=== PATIENT | female | born 1975 | race African-American/Black ===

== ENCOUNTER → 2016-05-19 | Day surgery (SDC) | payer OTHER ==
[~2016-05-19] VITALS: Ht 177.8 cm; Wt 108.6 kg
[~2016-05-19] MED LIST: *ONDANSETRON 4 MG VIAL PERIprocedural Use ONLY ONE; *morphine SULFATE 8 MG/ML PERIprocedure ONLY ONE; ACETAMINOPHEN 1000 MG/100 ML VIAL IV ONE; ALBUAER3 INH; BUPIVACAINE/EPINEPHRINE 0.25% 50 ML VIAL INFIL ONE; BUPIVACAINE/EPINEPHRINE 0.25% 50 ML VIAL ONE; DO NOT ADM ANY ANTICOAGULANT DRUGS XX PRN; FAMOTIDINE 20 MG/2 ML VIAL ONE; FERR1TAB36 PO; INSULIN HUMAN REGULAR 1,000 UNITS/10 ML VIAL SQ PRN; LACTATED RINGER'S 1000 ML IV SCH; MEGE40TA PO; METOPROLOL TARTRATE 25 MG TAB PO PRN; MIDAZOLAM HCL 2 MG/2 ML VIAL ONE; MULTTAB67 PO; NEOSTIGMINE METHYLSULFATE 10 MG/10 ML VIAL IV PUSH ONE; ONDANSETRON HCL 4 MG/2 ML VIAL IV PUSH ONE; OXYC1TAB63 PO; PROPOFOL 200 MG/20 ML AMP IV ONE; SODIUM CHLORID 0.9% 500 ML IV SCH; fentaNYL CITRATE 250 MCG/5 ML AMP ONE; oxyCODONE/ACETAMINOPHEN 5 MG/325 MG TAB PO PRN
--- NOTE | 2016-05-19 06:01 | MH ---
cc: DIAMANTE MENDEZ DATE OF ADMISSION: 05/19/2016 DATE OF 1975 DATE OF SURGERY Scheduled for 05/19/2016 HISTORY AND PHYSICAL A 40-year-old -[place] Citizen female who is having a laparoscopic bilateral tubal ligation and NovaSure endometrial ablation with a dilatation curettage and a hysteroscopy for severe menorrhagia. The patient is taking Megace currently and not having active bleeding, does not want to take Megace continuously. The patient has had anemia in the past and needs to have definitive therapy. PAST MEDICAL HISTORY Significant for anemia and menorrhagia. GYNECOLOGIC HISTORY No abnormal Pap smears. Last Pap smear was in 2014. OBSTETRICAL HISTORY She has had two vaginal births. GYNECOLOGIC HISTORY Negative. SURGICAL HISTORY 1. Myomectomy in 2012. 2. D&C in 2012. MEDICATIONS Megace. ALLERGIES ERYTHROMYCIN. PENICILLIN. SOCIAL HISTORY She does not smoke, drink or use drugs. REVIEW OF SYSTEMS Only significant for heavy vaginal bleeding. PHYSICAL EXAMINATION VITAL SIGNS: Stable and afebrile. NECK: Thyroid palpably normal. HEART: Regular rate and rhythm, without murmur or gallop. LUNGS: Clear to auscultation bilaterally. ABDOMEN: Soft, nontender, nondistended. Uterus is 10 weeks' size. No adnexal mass. IMPRESSION AT THIS TIME The patient desires permanent sterilization along with control of her menorrhagia with NovaSure, D&C, hysteroscopy. She is aware of the risks, benefits and alternatives. MD KJ Elizabeth/LORENZO /10:25 PM /5:56 AM
[2016-05-19 07:54] VITALS: BP 136/86; PULSE 81; RESP 16; TEMP 98.6; O2SAT 98
--- NOTE | 2016-05-19 10:41 | PD.OP ---
Operative Report Date of Surgery: May 19, 2016 Preoperative Diagnosis: (1) Excessive and frequent menstruation (2) Encounter for female sterilization procedure Postoperative Diagnosis: (1) Excessive and frequent menstruation (2) Encounter for female sterilization procedure Procedure: D&C hysteroscopy and novasure and lsc BTL Anesthesia: general Surgeon: Walter Sauer Applications Support Analyst(s): Walter Holder MD May 19, 2016 10:41
--- NOTE | 2016-05-19 10:46 | HHI.DCPOC ---
Discharge Care Plan Diagnosis: (1) Excessive and frequent menstruation (2) Encounter for female sterilization procedure Report Symptoms to Your Doctor -Temperate above 100.5 degrees -Redness, of incision or excessive or foul smelling drainage -Unusual pain or calf pain -Increased vaginal bleeding -Painful or difficulty urinating -Feelings of extreme sadness or anxiety after 2 weeks Goals to Promote Your Health * To prevent worsening of your condition and complications * To maintain your health at the optimal level Directions to Meet Your Goals Take your medications as prescribed Follow your dietary instruction Follow activity as directed Ensure plenty of rest for recovery Drink fluids for hydration Keep your appointments as scheduled Take your immunizations and boosters as scheduled If your symptoms worsen call your PCP, if no PCP go to Urgent Care Center or Emergency Room Smoking is Dangerous to Your Health. Avoid second hand smoke Call the 24-hour crisis hotline for domestic abuse at Walter Sauer MD May 19, 2016 10:46
[2016-05-19 12:27] VITALS: BP 117/70; PULSE 60; RESP 18; TEMP 97.9; O2SAT 100
--- NOTE | 2016-05-20 09:36 | MP ---
cc: DIAMANTE SAUER M.D. DATE OF PROCEDURE 05/19/2016 PROCEDURE Hysteroscopy, dilatation and curettage, NovaSure ablation along with laparoscopic bilateral tubal ligation. PREOPERATIVE DIAGNOSES Desires permanent sterilization. Excessive menses. POSTOPERATIVE DIAGNOSES Desires permanent sterilization. Excessive menses. SURGEON Dr. Diamante Sauer ESTIMATED BLOOD LOSS 20 cc COMPLICATIONS None. ANESTHESIA General. SPECIMENS Endometrial curettings. FINDINGS Normal female pelvic anatomy. Large fibroid uterus. PROCEDURE IN DETAIL After informed consent, the patient was taken to the operating room where she was placed under general anesthesia, placed in supine position, legs in the Y[place]ofin stirrups. The abdomen, perineum and vagina were prepped and draped in normal sterile fashion after adequate anesthesia was assured and time-out was taken. A speculum was placed in the vagina. The cervix was grasped with a single-tooth tenaculum. The speculum provided good visualization. We sounded the uterus to 10 cm and then proceeded to dilate the cervix to accommodate a 4-mm hysteroscope. Passed the hysteroscope to the fundus. There were no polyps or other abnormalities, slightly thickened endometrium. The endometrium was curetted with a D&C. After that, hysteroscopy was complete. The D&C obtained some endometrial curettings. At this point the cervix was dilated more to accommodate a NovaSure. We placed the NovaSure without difficulty. The length was 6.5, the width was 3.0. The instrument was easily activated and completed its cycle. Procedure complete, all instruments were removed from the vagina. Sponge on a stick was placed for the laparoscopic portion. Gloves were changed and a 5-mm umbilical incision was then made after 0.25% Marcaine with epinephrine was injected. We entered the abdomen under direct visualization and insufflated the abdomen, suprapubic 8-mm trocar was placed. Using Falope ring tube former operator we applied Falope rings to both fallopian tubes without problem. Good hemostasis achieved and now ligation was complete. The patient tolerated the procedure well. All instruments were removed from the abdomen. The skin was closed with 4-0 Monocryl. The patient will be taken to the recovery room in stable condition. MD KJ Elizabeth/LORENZO /10:44 AM /9:27 AM
== END | disposition home or self-care (01) ==
LOC: HSDC 07:17
PROVIDERS: ATTEND Obstetrics & Gynecology
DX: Z30.2 Encounter for sterilization (principal); N92.0 Excessive and frequent menstruation with regular cycle; J45.909 Unspecified asthma, uncomplicated; Z88.0 Allergy status to penicillin
CPT/HCPCS: 00851; 58563; 58671; 84703; 88305; J0131; J2250; J2270; J2405; J2710; J3010; J7120

== ENCOUNTER 2017-01-12 06:49 | Observation (INO) | payer OTHER ==
[2017-01-11 19:46] VITALS: BP 142/74; PULSE 82; RESP 20; TEMP 98.5; O2SAT 98
[~2017-01-12] VITALS: Ht 177.8 cm; Wt 107.9 kg
[~2017-01-12 06:49] MED LIST changes: -*ONDANSETRON 4 MG VIAL PERIprocedural Use ONLY ONE; -*morphine SULFATE 8 MG/ML PERIprocedure ONLY ONE; -ACETAMINOPHEN 1000 MG/100 ML VIAL IV ONE; -BUPIVACAINE/EPINEPHRINE 0.25% 50 ML VIAL INFIL ONE; -BUPIVACAINE/EPINEPHRINE 0.25% 50 ML VIAL ONE; +CODCAP6 PO; -DO NOT ADM ANY ANTICOAGULANT DRUGS XX PRN; -FAMOTIDINE 20 MG/2 ML VIAL ONE; -FERR1TAB36 PO; +FERR325T18 PO; -INSULIN HUMAN REGULAR 1,000 UNITS/10 ML VIAL SQ PRN; -LACTATED RINGER'S 1000 ML IV SCH; -MEGE40TA PO; -METOPROLOL TARTRATE 25 MG TAB PO PRN; -MIDAZOLAM HCL 2 MG/2 ML VIAL ONE; -NEOSTIGMINE METHYLSULFATE 10 MG/10 ML VIAL IV PUSH ONE; -ONDANSETRON HCL 4 MG/2 ML VIAL IV PUSH ONE; -OXYC1TAB63 PO; -PROPOFOL 200 MG/20 ML AMP IV ONE; -SODIUM CHLORID 0.9% 500 ML IV SCH; +TURM500C7 PO; -fentaNYL CITRATE 250 MCG/5 ML AMP ONE; -oxyCODONE/ACETAMINOPHEN 5 MG/325 MG TAB PO PRN
[2017-01-12] MEDS ORDERED: LACTATED RINGER'S 1000 ML IV PRN (07:15)
[2017-01-12] MEDS ORDERED: ceFAZolin 2 GM PREMIX 50 ML IV SCH (07:15)
[2017-01-12] MEDS ORDERED: METOPROLOL TARTRATE 25 MG TAB PO PRN (07:15)
[2017-01-12] MEDS ORDERED: POVIDONE IODINE 5% (ANTISEPSIS KIT) 4 APPLICATIONS EACH NARE PRN (07:15)
[2017-01-12] MEDS ORDERED: SODIUM CHLORID 0.9% 500 ML IV PRN (07:15)
[2017-01-12] MEDS ORDERED: CHLORHEXIDINE GLUCONATE 2 % 1 PACK (2 CLOTHS) TOPICAL PRN (07:15)
[2017-01-12 07:35] LABS: AUTOMATED NEUTROPHIL # 4.1 TH/MM3 (1.8-7.7); BASOPHIL # 0.1 TH/MM3 (0-0.2); BASOPHIL % 0.8 % (0.0-2.0); EOSINOPHIL # 0.1 TH/MM3 (0-0.4); EOSINOPHIL % 1.4 % (0.0-4.0); HEMATOCRIT 35.7 % (35.0-46.0); HEMO FLAGS DIFF FINAL; LYMPH % 30.4 % (9.0-44.0); LYMPHOCYTE # 2.1 TH/MM3 (1.0-4.8); MEAN CELL VOLUME 77.6 FL (80.0-100.0); MEAN CORPUSCULAR HEMOGLOBIN 25.6 PG (27.0-34.0); MONO % 6.4 % (0.0-8.0); PLATELET COUNT 360 TH/MM3 (150-450); RED CELL DISTRIBUTION WIDTH 15.7 % (11.6-17.2); WHITE BLOOD COUNT 6.8 TH/MM3 (4.0-11.0)
[2017-01-12] MEDS ORDERED: ACETAMINOPHEN 1000 MG/100 ML 100 ML IV ONE (07:43)
[2017-01-12] MEDS ORDERED: LIDOCAINE 1%/EPINEPHrine 1:100,000 SOLN 50 ML VIAL ONE (07:46)
[2017-01-12 07:58] LABS: BETA HCG QUANT LESS THAN 1 MIU/ML (0-5)
--- NOTE | 2017-01-12 11:10 | MP ---
cc: DIAMANTE SAUER DATE OF SURGERY: 01/12/2017 OPERATION: Laparoscopic-assisted vaginal hysterectomy, bilateral salpingectomy. PREOPERATIVE DIAGNOSIS Fibroids and excessive menses. POSTOPERATIVE DIAGNOSIS Fibroids and excessive menses. SURGEON Dr. Diamante Sauer SHOW HOST/HOSTESS: Allison Gastelum, MS III COMPLICATIONS None. ESTIMATED BLOOD LOSS 700 cc. FINDINGS Large fibroid boggy uterus normal fallopian tubes and ovaries normal upper and lower abdomen anesthesia was general specimen included uterus, cervix, fallopian tubes. PROCEDURE IN DETAIL After informed consent the patient operating room where she was placed under general anesthesia placed physician, legs in Yellow fin stirrups. Prepped, draped in normal sterile fashion. Cast Band-Aids after adequate anesthesia was assured. The patient was under general anesthesia. Time-out was taken, a speculum placed in vagina. Cervix grasped with single-tooth tenaculum and a HUMI uterine manipulator was placed into the into the uterus. Cooper catheter was placed to gravity. Clear urine was noted. At this point gloves were changed and 5 mm local incision was then made after injecting 0.25% Marcaine with epinephrine, we entered the abdomen under direct visualization. The left and right lower quadrant trocars were placed without difficulty. Good hemostasis was achieved at all trocar sites. At this point we progressed to a Harmonic scalpel to use a salpinx and dissect the ovaries away from the fallopian tubes. The fallopian tubes were then cauterized at the level of the uterus and we continued through the broad ligament through the round ligament down through the level of bladder flap. The bladder flap identified in the uterine arteries. There were large veins and arteries at the uterine arteries of feed this large fibroid uterus. We used a Harmonic scalpel and then we used bipolar cautery for better hemostasis. We reached the level of the cervical branches of the uterine arteries and the bladder was dissected by creating bladder flap off the cervix. At this point we went below and we grasped the cervix was very little descent, we grabbed the cervix and incised anteriorly down to a level of the cervical fascia where we then dissected the cervical fascia up to the incision from above. When we reached bladder flap from above we entered the abdomen anteriorly. The posterior cul-de-sac was entered with scissors without difficulty. Small amount of blood was in the posterior cul-de-sac. This was suctioned out. Using Matthew clamps we had take three bites on the right side, four bites on the left side to take the uterosacral cardinal ligaments and then proximally anterior posterior peritoneum until we reached the incision from above. Once we reach incision from above. Good hemostasis was achieved, the posterior cuff was oozing, this was oversewn with a [id number] running locking stitch of 0 Vicryl suture. Good hemostasis achieved at the posterior cuff. Anterior posterior cuffs were approximated in a horizontal fashion without difficulty. Good hemostasis was achieved at the vaginal cuff. We then proceeded to change gloves again reinsufflated the abdomen, it appeared that the upper abdomen was dry except for one area where the bladder was oozing where the bladder flap has been created. We used bipolar cautery slightly and then used John 3 gram vial of John for hemostasis. Good hemostasis was achieved. The procedure was now ended, all instruments were removed from the abdomen. Lap and instrument counts were reported as correct. We confirmed the procedure, the third time out, as removal of the uterus, cervix, fallopian tubes. The patient tolerated the procedure well. A 5-mm trocar sites were closed with a simple stitch. The patient was awakened, taken to recovery room in stable condition. MD KJ Elizabeth/xavi /10:55 AM /11:04 AM
[2017-01-12] MEDS ORDERED: DO NOT ADM ANY ANTICOAGULANT DRUGS PRN (11:11)
[2017-01-12] MEDS ORDERED: ONDANSETRON HCL 4 MG/2 ML VIAL IVP PRN (11:15)
[2017-01-12] MEDS ORDERED: KETOROLAC TROMETHAMINE 30 MG/ML (IVP) VIAL IVP PRN (11:15)
[2017-01-12] MEDS ORDERED: HYDROmorphone HCL PF 1 MG/ML VIAL IVP PRN (11:15)
[2017-01-12] MEDS ORDERED: oxyCODONE/ACETAMINOPHEN 5 MG/325 MG TAB PO PRN ×2 (11:15)
[2017-01-12] MEDS ORDERED: diphenhydrAMINE HCL 25 MG CAP PO PRN (11:15)
[2017-01-12] MEDS ORDERED: IBUPROFEN 600 MG TAB PO PRN (11:15)
[2017-01-12] MEDS ORDERED: SODIUM CHLORIDE 0.9% FLUSH 10 ML FLUSH IV FLUSH PRN (11:15)
--- NOTE | 2017-01-12 11:15 | PD.OP ---
Operative Report Date of Surgery: Jan 12, 2017 Preoperative Diagnosis: (1) Excessive and frequent menstruation Postoperative Diagnosis: (1) Excessive and frequent menstruation Procedure: LAVH bilateral salpingectomy Anesthesia: general Surgeon: Walter Sauer T Rail Turner(s): armando Gastelum MS3 Walter Sauer MD Jan 12, 2017 11:15
[2017-01-12] MEDS ORDERED: *morphine SULFATE 8 MG/ML PERIprocedure ONLY ONE ×2 (11:35→11:54)
[2017-01-12] MEDS ORDERED: LACTATED RINGER'S 1000 ML INJ 3,000 ML IV ONE (12:00)
[2017-01-12] MEDS ORDERED: LIDOCAINE HCL 1% PF 5 ML AMPULE OTHER ONE (12:00)
[2017-01-12] MEDS ORDERED: GLYCOPYRROLATE 1 MG/5 ML SYRINGE IV PUSH ONE (12:00)
[2017-01-12] MEDS ORDERED: ONDANSETRON HCL 4 MG/2 ML VIAL IV PUSH ONE (12:00)
[2017-01-12] MEDS ORDERED: NEOSTIGMINE 3 MG/3 ML SYR IV ONE (12:00)
[2017-01-12] MEDS ORDERED: MIDAZOLAM HCL 2 MG/2 ML VIAL IV ONE (12:00)
[2017-01-12] MEDS ORDERED: DEXAMETHASONE SOD PHOS 4 MG/ML VIAL IV ONE (12:00)
[2017-01-12] MEDS ORDERED: PROPOFOL 200 MG/20 ML AMP IV ONE (12:00)
[2017-01-12] MEDS ORDERED: ROCURONIUM INJ 50 MG/5 ML SYRINGE IV PUSH ONE (12:00)
[2017-01-12] MEDS ORDERED: MORPHINE SULFATE 4 MG/ML INJ IV ONE (12:00)
[2017-01-12] MEDS ORDERED: ePHEDrine/NS 25 MG/5 ML SYR IV ONE (12:00)
[2017-01-12 12:38] VITALS: BP 122/69; PULSE 70; RESP 14; O2SAT 99
[2017-01-12 14:15] VITALS: TEMP 97.8
[2017-01-12 16:15] VITALS: BP 115/65; PULSE 69; RESP 14; TEMP 97.9; O2SAT 99
[2017-01-12 19:46] VITALS: BP 142/74; PULSE 82; RESP 20; TEMP 98.5; O2SAT 98
[2017-01-12] MEDS ORDERED: SODIUM CHLORIDE 0.9% FLUSH 10 ML FLUSH IV FLUSH SCH (21:00)
[2017-01-12] MEDS: IBUPROFEN 600 MG TAB PO PRN (21:09)
[2017-01-12] MEDS: ACETAMINOPHEN 325 MG TAB PO PRN (21:09)
[2017-01-12 23:53] VITALS: BP 126/67; PULSE 95; RESP 16; TEMP 98.2; O2SAT 98
[2017-01-13] MEDS: ACETAMINOPHEN 325 MG TAB PO PRN ×3 (03:07→13:29)
[2017-01-13] MEDS: IBUPROFEN 600 MG TAB PO PRN ×2 (03:07→09:14)
[2017-01-13 03:08] VITALS: BP 105/61; PULSE 90; RESP 16; TEMP 97.8; O2SAT 98
[2017-01-13 05:59] LABS: BASOPHIL % 0.1 % (0.0-2.0); EOSINOPHIL % 0.1 % (0.0-4.0); HEMATOCRIT 27.7 % (35.0-46.0); HEMO FLAGS DIFF FINAL; LYMPH % 17.6 % (9.0-44.0); LYMPHOCYTE # 2.1 TH/MM3 (1.0-4.8); MEAN CELL VOLUME 79.7 FL (80.0-100.0); MEAN CORPUSCULAR HEMOGLOBIN 24.7 PG (27.0-34.0); MONO % 6.8 % (0.0-8.0); NEUT % 75.4 % (16.0-70.0); PLATELET COUNT 317 TH/MM3 (150-450); RED BLOOD COUNT 3.48 MIL/MM3 (4.00-5.30); RED CELL DISTRIBUTION WIDTH 15.8 % (11.6-17.2); WHITE BLOOD COUNT 11.9 TH/MM3 (4.0-11.0)
--- NOTE | 2017-01-13 07:20 | HHI.PR ---
Subjective Remarks Doing well, pain is well controlled, eating well. Objective Vital Signs Vital Signs Date Time Temp Pulse Resp B/P (MAP) Pulse Ox O2 Delivery O2 Flow Rate FiO2 01/13/17 03:08 97.8 90 16 105/61 (76) 98 01/12/17 23:53 98.2 95 16 126/67 (86) 98 01/12/17 19:46 98.5 82 20 142/74 (96) 98 01/12/17 16:15 97.9 69 14 115/65 (82) 99 01/12/17 14:15 97.8 01/12/17 12:38 70 14 122/69 (86) 99 01/12/17 12:15 97.8 62 12 111/62 (78) 97 Room Air 01/12/17 12:00 65 10 109/57 (74) 100 Nasal Cannula 2 01/12/17 11:45 79 12 105/55 (72) 96 Nasal Cannula 2 01/12/17 11:30 86 14 120/69 (86) 99 Nasal Cannula 2 01/12/17 11:15 97.7 121 14 131/81 (98) 97 Nasal Cannula 3 01/12/17 07:37 98.9 72 20 136/92 (107) 99 I/O 01/12/17 01/12/17 01/12/17 01/13/17 01/13/17 01/13/17 07:00 15:00 23:00 07:00 15:00 23:00 Intake Total 3100 ml 360 ml Output Total 1450 ml 1125 ml 150 ml Balance 1650 ml -765 ml -150 ml Intake Oral 360 ml IV Total 100 ml Other 3000 ml Output Urine Total 150 ml 1125 ml 150 ml Estimated Blood Loss 700 ml Other 600 ml # Voids 0 Result Diagram: 01/13/17 0459 Objective Remarks Chest is clear, regular rate and rhythm. Abdomen is soft and non-distended. Incision is clean and dry. Ext no CCE. A/P Assessment and Plan Post Op Day 1 Doing well Home today and return to office in two weeks. Walter Sauer MD Jan 13, 2017 07:20
--- NOTE | 2017-01-13 07:21 | HHI.DCPOC ---
Discharge Care Plan Diagnosis: (1) Excessive and frequent menstruation Report Symptoms to Your Doctor -Temperature above 100.5 degrees -Redness, of incision or excessive or foul smelling drainage -Unusual pain or calf pain -Increased vaginal bleeding -Painful or difficulty urinating -Feelings of extreme sadness or anxiety after 2 weeks Goals to Promote Your Health * To prevent worsening of your condition and complications * To maintain your health at the optimal level Directions to Meet Your Goals Take your medications as prescribed Follow your dietary instruction Follow activity as directed Ensure plenty of rest for recovery Drink fluids for hydration Keep your appointments as scheduled Take your immunizations and boosters as scheduled If your symptoms worsen call your PCP, if no PCP go to Urgent Care Center or Emergency Room Smoking is Dangerous to Your Health. Avoid second hand smoke Call the 24-hour crisis hotline for domestic abuse at Walter Sauer MD Jan 13, 2017 07:21
--- NOTE | 2017-01-13 07:25 | HHI.DS ---
Admission Date Jan 12, 2017 at 11:13 Discharge Date: Jan 13, 2017 Admitting Diagnosis Diagnosis: (1) Excessive and frequent menstruation Diagnosis: Principal ICD Codes: N92.0 - Excessive and frequent menstruation with regular cycle Status: Acute Brief History Admit 01/12 2017 for LAVH and bilateral salpingectomy, Pt had surgery Hospital Course Patient did well and came for LAVH she is recovering well Pt Condition on Discharge: Good Discharge Disposition: Discharge Home Discharge Instructions Diet Instructions: As Tolerated, No Restrictions Activities You Can Perform: Regular-No Restrictions, Pelvic Rest Activities to Avoid: Driving for 24 hrs Follow up Referrals: AIRPLANE [facility]ER - 2 Weeks @ [facility] with Walter Sauer MD Continued Medications: Albuterol 8.5 GM Inh (Proair Hfa 8.5 GM Inh) 90 Mcg/Act Aer 2 PUFF INH Q6H PRN for SHORTNESS OF BREATH, #1 INHALER 0 Refills 108 mcg/actuation Ferrous Sulfate (Ferrous Sulfate) 325 Mg (65 Mg Iron) Tablet 325 MG PO DAILY PRN for anemia, #30 TAB 0 Refills Om3/Dha/Epa/Cod Liver Oil/A/D3 (Cod Liver Oil Softgel) 240-1,000MG Capsule 1 TAB PO DAILY Walter Sauer MD Jan 13, 2017 07:25
[2017-01-13 08:40] VITALS: BP 111/74; PULSE 95; RESP 16; TEMP 98.6
== END 2017-01-13 13:53 | disposition home or self-care (01) ==
LOC: HSDC 06:49 → HSDI 11:13 → H1EA 12:40
PROVIDERS: ADMIT Obstetrics & Gynecology; ATTEND Obstetrics & Gynecology
DX: D25.1 Intramural leiomyoma of uterus (principal); N92.0 Excessive and frequent menstruation with regular cycle; K66.0 Peritoneal adhesions (postprocedural) (postinfection); N80.0 Endometriosis of uterus; N72 Inflammatory disease of cervix uteri
CPT/HCPCS: 00840; 58554; 84702; 85025; 86850; 86900; 86901; 88307; 94150; G0378; J0131; J0690; J1100; J1885; J2250; J2270; J2405; J2710; J3010; J7120

== ENCOUNTER 2017-01-16 11:08 | Inpatient (IN) | payer OTHER ==
[~2017-01-16] VITALS: Ht 177.8 cm; Wt 105.0 kg
[2017-01-16] VITALS (8 sets, daily range): BP systolic 104–136; BP diastolic 56–76; PULSE 81–114; RESP 16–22; TEMP 97.8–101.6; O2SAT 16–100
[2017-01-16] MEDS ORDERED: SODIUM CHLOR 0.9% 1000 ML INJ 1,000 ML IV ONE (11:28)
[2017-01-16] MEDS ORDERED: ONDANSETRON HCL 4 MG/2 ML VIAL IVP ONE (11:30)
[2017-01-16] MEDS ORDERED: SODIUM CHLORIDE 0.9% FLUSH 10 ML FLUSH IVF PRN (11:30)
--- NOTE | 2017-01-16 11:37 | PD ---
HPI Chief Complaint: Syncope/Near-Syncope Time Seen by Provider: 11:34 Travel History International Travel<30 days: No Contact w/Intl Traveler<30days: No Traveled to known affect area: No History of Present Illness HPI This is a 41-year-old female who presents with her for evaluation of syncopal episode. The patient reports that after she was getting up off the toilet she took a few steps with the assistance of her and she felt lightheaded and passed out. The was able to lower her to the ground so she had no traumatic injury. She shortly afterwards had another syncopal episode. The patient's reports recent laparoscopic vaginal hysterectomy and bilateral salpingectomy performed on January [address] Cotton. She reports some lower abdominal cramping since the surgery for which she has been using [id number] pain medication. She endorses some nausea. Denies vomiting, vaginal bleeding, objective fevers, chest pain. She has had some fatigue since the surgery. She has no other complaints at this time. PFSH Past Medical History Asthma: Yes Blood Disorders: No Anxiety: No Depression: No Heart Rhythm Problems: No Cancer: No Cardiovascular Problems: No High Cholesterol: No Chest Pain: No Congestive Heart Failure: No COPD: No Diabetes: No Diminished Hearing: No Endocrine: No Genitourinary: No Hepatitis: No Hiatal Hernia: No Immune Disorder: No Musculoskeletal: Yes (BACK PAIN from old injury) Neurologic: No Psychiatric: No Reproductive: Yes (MENORRHAGIA, FIBROID) Respiratory: Yes (ASTHMA) Sleep Apnea: No Thyroid Disease: No ?: Not : 1 Para: 1 Past Surgical History Abdominal Surgery: No AICD: No Body Medical Devices: NONE PER PT Cardiac Surgery: No Ear Surgery: No Endocrine Surgery: No Eye Surgery: No Genitourinary Surgery: No Gynecologic Surgery: Yes (MYOMECTOMY, novasure) Hysterectomy: Yes Joint Replacement: No Oral Surgery: Yes (T & A) Pacemaker: No Thoracic Surgery: No Tonsillectomy: Yes (ADENOIDS) Social History Alcohol Use: Yes (SOCIAL) Tobacco Use: No Substance Use: No Allergies-Medications (Allergen,Severity, Reaction): Coded Allergies: erythromycin base (Verified Allergy, Intermediate, Rash, 01/16/17) penicillin G (Verified Allergy, Intermediate, Rash, 01/16/17) orange (Verified Adverse Reaction, Severe, MILD FACIAL RASH, 01/16/17) tomato (Verified Adverse Reaction, Intermediate, MILD FACIAL RASH, ) Reported Meds & Prescriptions Reported Meds & Active Scripts Active Reported Proair Hfa 8.5 GM Inh (Albuterol Sulfate) 90 Mcg/Act Aer 2 Puff INH Q6H PRN 108 mcg/actuation Review of Systems Except as stated in HPI: all other systems reviewed are Neg Physical Exam Narrative GENERAL: Well-developed well-nourished female in no acute distress SKIN: Warm and dry. HEAD: Atraumatic. Normocephalic. EYES: Pupils equal and round. No scleral icterus. No injection or drainage. ENT: No nasal bleeding or discharge. Mucous membranes pink and moist. NECK: Trachea midline. No JVD. CARDIOVASCULAR: Regular rate and rhythm. No murmur appreciated. RESPIRATORY: No accessory muscle use. Clear to auscultation. Breath sounds equal bilaterally. No crackles no wheezing or rhonchi GASTROINTESTINAL: Abdomen soft, mild lower abdominal tenderness to palpation without guarding. Laparoscopic incision sites appear normal. MUSCULOSKELETAL: No obvious deformities. No clubbing. No cyanosis. No edema. NEUROLOGICAL: Awake and alert. No obvious cranial nerve deficits. Motor grossly within normal limits. Normal speech. PSYCHIATRIC: Appropriate mood and affect; insight and judgment normal. Data Data Last Documented VS Vital Signs Date Time Temp Pulse Resp B/P (MAP) Pulse Ox O2 Delivery O2 Flow Rate FiO2 01/16/17 11:35 17 99 Room Air 01/16/17 11:35 77 01/16/17 11:10 98.5 Orders Orders Electrocardiogram (01/16/17 ) Complete Blood Count With Diff (01/16/17 11:28) Comprehensive Metabolic Panel (01/16/17 11:28) Magnesium (Mg) (01/16/17 11:28) Urinalysis - C+S If Indicated (01/16/17 11:28) Blood Glucose (01/16/17 11:28) Ecg Monitoring (01/16/17 11:28) Iv Access Insert/Monitor (01/16/17 11:28) Oximetry (01/16/17 11:28) Ondansetron Inj (Zofran Inj) (01/16/17 11:30) Sodium Chloride 0.9% Flush (Ns Flush) (01/16/17 11:30) Sodium Chlor 0.9% 1000 Ml Inj (Ns 1000 M (01/16/17 11:28) Orthostatic Vital Signs (01/16/17 12:01) Labs Laboratory Tests Test 01/16/17 11:37 White Blood Count 12.0 TH/MM3 Red Blood Count 3.80 MIL/MM3 Hemoglobin 9.8 GM/DL Hematocrit 30.0 % Mean Corpuscular Volume 79.0 FL Mean Corpuscular Hemoglobin 25.9 PG Mean Corpuscular Hemoglobin Concent 32.7 % Red Cell Distribution Width 15.6 % Platelet Count 378 TH/MM3 Mean Platelet Volume 7.8 FL Neutrophils (%) (Auto) 82.2 % Lymphocytes (%) (Auto) 11.1 % Monocytes (%) (Auto) 6.2 % Eosinophils (%) (Auto) 0.1 % Basophils (%) (Auto) 0.4 % Neutrophils # (Auto) 9.9 TH/MM3 Lymphocytes # (Auto) 1.3 TH/MM3 Monocytes # (Auto) 0.7 TH/MM3 Eosinophils # (Auto) 0.0 TH/MM3 Basophils # (Auto) 0.0 TH/MM3 CBC Comment DIFF FINAL Differential Comment Blood Urea Nitrogen 12 MG/DL Creatinine 0.90 MG/DL Random Glucose 113 MG/DL Total Protein 7.6 GM/DL Albumin 3.3 GM/DL Calcium Level 8.7 MG/DL Magnesium Level 2.2 MG/DL Alkaline Phosphatase 68 U/L Aspartate Amino Transf (AST/SGOT) 17 U/L Alanine Aminotransferase (ALT/SGPT) 20 U/L Total Bilirubin 0.7 MG/DL Sodium Level 138 MEQ/L Potassium Level 4.3 MEQ/L Chloride Level 105 MEQ/L Carbon Dioxide Level 26.3 MEQ/L Anion Gap 7 MEQ/L Estimat Glomerular Filtration Rate 84 ML/MIN [facility] Medical Decision Making Medical Screen Exam Complete: Yes Emergency Medical Condition: Yes Medical Record Reviewed: Yes Differential Diagnosis Symptomatic anemia, dehydration, electrolyte abnormality, arrhythmia, hypoglycemia, intra-abdominal hemorrhage Narrative Course The patient was placed on ECG monitoring pulse oximetry. A 12-lead EKG was obtained revealing normal sinus rhythm with a rate of 81. Plan is for lab work , IV fluids, Zofran. Lab work will for hemoglobin 9.8 which is improved from most recent hemoglobin. She feels somewhat improved after 1 L of IV fluids, urinalysis is still pending and she declines pain medication. Discussed with her eligibility counselor Dr. Sauer who would like to admit the patient for observation overnight. Discussed with the patient and her who are agreeable. Diagnosis Primary Impression: Syncope Qualified Codes: R55 - Syncope and collapse Admitting Information Admitting Physician Requests: Observation Jose Omalley Jan 16, 2017 11:37
[2017-01-16 11:51] LABS: AUTOMATED NEUTROPHIL # 9.9 TH/MM3 (1.8-7.7); BASOPHIL % 0.4 % (0.0-2.0); EOSINOPHIL % 0.1 % (0.0-4.0); HEMO FLAGS DIFF FINAL; LYMPH % 11.1 % (9.0-44.0); LYMPHOCYTE # 1.3 TH/MM3 (1.0-4.8); MEAN CORPUSCULAR HEMOGLOBIN 25.9 PG (27.0-34.0); MEAN CORPUSCULAR HGB CONC 32.7 % (32.0-36.0); MONO % 6.2 % (0.0-8.0); NEUT % 82.2 % (16.0-70.0); PLATELET COUNT 378 TH/MM3 (150-450); RED CELL DISTRIBUTION WIDTH 15.6 % (11.6-17.2)
[2017-01-16 12:04] LABS: ANION GAP 7 MEQ/L (5-15); AST (GOT) 17 U/L (15-37); BICARBONATE 26.3 MEQ/L (21.0-32.0); BLOOD UREA NITROGEN 12 MG/DL (7-18); CHLORIDE 105 MEQ/L (98-107); GLOMERULAR FILTRATION RATE 84 ML/MIN (>89); MAGNESIUM 2.2 MG/DL (1.5-2.5); POTASSIUM 4.3 MEQ/L (3.5-5.1); SODIUM (NA) 138 MEQ/L (136-145)
[2017-01-16 12:07] LABS: ALKALINE PHOSPHATASE 68 U/L (45-117); ALT (GPT) 20 U/L (10-53); TOTAL BILIRUBIN ADULT 0.7 MG/DL (0.2-1.0)
--- NOTE | 2017-01-16 12:28 | PD ---
Physical Exam Date Seen by Provider: Jan 16, 2017 Time Seen by Provider: 12:15 Narrative Patient presents following a syncopal episodes 2 at home Data Data Last Documented VS Vital Signs Date Time Temp Pulse Resp B/P (MAP) Pulse Ox O2 Delivery O2 Flow Rate FiO2 01/16/17 11:35 17 99 Room Air 01/16/17 11:35 77 01/16/17 11:10 98.5 Orders Orders Electrocardiogram (01/16/17 ) Complete Blood Count With Diff (01/16/17 11:28) Comprehensive Metabolic Panel (01/16/17 11:28) Magnesium (Mg) (01/16/17 11:28) Urinalysis - C+S If Indicated (01/16/17 11:28) Blood Glucose (01/16/17 11:28) Ecg Monitoring (01/16/17 11:28) Iv Access Insert/Monitor (01/16/17 11:28) Oximetry (01/16/17 11:28) Ondansetron Inj (Zofran Inj) (01/16/17 11:30) Sodium Chloride 0.9% Flush (Ns Flush) (01/16/17 11:30) Sodium Chlor 0.9% 1000 Ml Inj (Ns 1000 M (01/16/17 11:28) Orthostatic Vital Signs (01/16/17 12:01) Labs Laboratory Tests Test 01/16/17 11:37 White Blood Count 12.0 TH/MM3 Red Blood Count 3.80 MIL/MM3 Hemoglobin 9.8 GM/DL Hematocrit 30.0 % Mean Corpuscular Volume 79.0 FL Mean Corpuscular Hemoglobin 25.9 PG Mean Corpuscular Hemoglobin Concent 32.7 % Red Cell Distribution Width 15.6 % Platelet Count 378 TH/MM3 Mean Platelet Volume 7.8 FL Neutrophils (%) (Auto) 82.2 % Lymphocytes (%) (Auto) 11.1 % Monocytes (%) (Auto) 6.2 % Eosinophils (%) (Auto) 0.1 % Basophils (%) (Auto) 0.4 % Neutrophils # (Auto) 9.9 TH/MM3 Lymphocytes # (Auto) 1.3 TH/MM3 Monocytes # (Auto) 0.7 TH/MM3 Eosinophils # (Auto) 0.0 TH/MM3 Basophils # (Auto) 0.0 TH/MM3 CBC Comment DIFF FINAL Differential Comment Blood Urea Nitrogen 12 MG/DL Creatinine 0.90 MG/DL Random Glucose 113 MG/DL Total Protein 7.6 GM/DL Albumin 3.3 GM/DL Calcium Level 8.7 MG/DL Magnesium Level 2.2 MG/DL Alkaline Phosphatase 68 U/L Aspartate Amino Transf (AST/SGOT) 17 U/L Alanine Aminotransferase (ALT/SGPT) 20 U/L Total Bilirubin 0.7 MG/DL Sodium Level 138 MEQ/L Potassium Level 4.3 MEQ/L Chloride Level 105 MEQ/L Carbon Dioxide Level 26.3 MEQ/L Anion Gap 7 MEQ/L Estimat Glomerular Filtration Rate 84 ML/MIN MDM Supervised Visit with RAUL: Yes Narrative Course I, Dr. Ferrell, have reviewed the advance practice practitioner's documentation and am in agreement, met with the patient face to face, made the diagnosis, and the medical decision making was done by me. *My assessment and Findings: Patient is sitting up in the bed in no acute distress. Please see Jose Omalley PA-C's note for results of laboratory and radiographic evaluation, ED course, final diagnosis and disposition Sadia Ferrell MD Jan 16, 2017 12:28
[2017-01-16] MEDS ORDERED: ONDANSETRON HCL 4 MG/2 ML VIAL IV PUSH PRN (13:45)
[2017-01-16] MEDS ORDERED: oxyCODONE/ACETAMINOPHEN 5 MG/325 MG TAB PO PRN ×2 (13:45)
[2017-01-16] MEDS: LACTATED RINGER'S 1000 ML INJ 1,000 ML IV SCH ×2 (13:53→23:23)
[2017-01-16] MEDS ORDERED: IBUPROFEN 600 MG TAB PO PRN (14:00)
--- NOTE | 2017-01-16 16:00 | EKG ---
Date Performed: 01/16/2017 Time Performed: 11:28:11 PTAGE: 41 years EKG: Sinus rhythm Compared to prior tracing no significant change NORMAL ECG PREVIOUS TRACING : 11/15/2007 03.47 DOCTOR: Toney Roche Interpretating Date/Time 01/16/2017 15:59:28
[2017-01-16] MEDS: ACETAMINOPHEN 325 MG TAB PO PRN ×2 (17:26→23:23)
[2017-01-17] VITALS (11 sets, daily range): BP systolic 117–144; BP diastolic 61–79; PULSE 95–145; RESP 16–28; TEMP 98.2–103.1; O2SAT 97–100
[2017-01-17 06:14] LABS: AUTOMATED NEUTROPHIL # 11.3 TH/MM3 (1.8-7.7); BASOPHIL % 0.2 % (0.0-2.0); EOSINOPHIL % 0.1 % (0.0-4.0); HEMATOCRIT 25.7 % (35.0-46.0); HEMO FLAGS DIFF FINAL; LYMPH % 12.6 % (9.0-44.0); LYMPHOCYTE # 1.8 TH/MM3 (1.0-4.8); MEAN CORPUSCULAR HEMOGLOBIN 25.1 PG (27.0-34.0); MEAN CORPUSCULAR HGB CONC 31.8 % (32.0-36.0); MONO % 6.7 % (0.0-8.0); NEUT % 80.4 % (16.0-70.0); PLATELET COUNT 330 TH/MM3 (150-450); RED BLOOD COUNT 3.25 MIL/MM3 (4.00-5.30); RED CELL DISTRIBUTION WIDTH 15.7 % (11.6-17.2)
[2017-01-17] MEDS: LACTATED RINGER'S 1000 ML INJ 1,000 ML IV SCH ×2 (09:20→22:35)
--- NOTE | 2017-01-17 10:40 | HHI.HP ---
HPI Chief Complaint syncope Date Seen: Jan 16, 2017 Time Seen: 15:00 Travel History International Travel<30 Days: No Contact w/Intl Traveler<30Days: No Known Affected Area: No History of Present Illness HPI 41 yo who had a LAVH on 01/12 who went home on 01/13/17. She was doing well up to bath room without lightheadedness. Then on wednesday AM she developed syncope ambulating(01/16/17). She had Hgb stable above 9 and vitals were all normal. Admit for obs History Past Medical History Medical History: Denies Significant Hx Past Surgical History Narrative Surgical ablation, surgery LAVH this week Family History Family History: Negative Social History Alcohol Use: No Tobacco Use: No Substance Abuse: No Allergies-Medications (Allergen,Severity, Reaction): Coded Allergies: erythromycin base (Verified Allergy, Intermediate, Rash, 01/16/17) penicillin G (Verified Allergy, Intermediate, Rash, 01/16/17) orange (Verified Adverse Reaction, Severe, MILD FACIAL RASH, 01/16/17) tomato (Verified Adverse Reaction, Intermediate, MILD FACIAL RASH, ) Home Meds Reported Medications Albuterol 8.5 GM Inh (Proair Hfa 8.5 GM Inh) 90 Mcg/Act Aer, 2 PUFF INH Q6H Y for SHORTNESS OF BREATH, #1 INHALER 0 Refills 108 mcg/actuation 05/18/16 Discontinued Reported Medications Ferrous Sulfate (Ferrous Sulfate) 325 Mg (65 Mg Iron) Tablet, 325 MG PO DAILY Y for anemia, #30 TAB 0 Refills 01/11/17 Om3/Dha/Epa/Cod Liver Oil/A/D3 (Cod Liver Oil Softgel) 240-1,000MG Capsule, 1 TAB PO DAILY 01/11/17 Turmeric Root Extract (Turmeric) 500 Mg Capsule, 2 TAB PO DAILY 01/11/17 Multiple Vitamin (Multiple Vitamin) 1 Tab, 1 TAB PO DAILY for Nutritional Supplement, TAB 0 Refills 05/18/16 Ferrous Sulfate (Iron) 325 Mg Tab, 325 MG PO DAILY Y for anemia, TAB 0 Refills Take 05/18/16 Discontinued Scripts Oxycodone-Acetaminophen (Oxycodone-Acetaminophen) 5-325 mg Tab, 1 TAB PO Q4H Y for pain 1-5, #30 TAB Prov:Walter Sauer MD 05/19/16 Review of Systems Except as stated in HPI: all other systems reviewed are Neg Neurologic: Weakness, Dizziness Physical Exam Vital Signs Date Time Temp Pulse Resp B/P (MAP) Pulse Ox O2 Delivery O2 Flow Rate FiO2 01/17/17 08:03 98.2 95 18 126/79 (95) 99 128/74 (92) 130/74 (92) 01/17/17 05:23 97 01/17/17 04:05 112 01/17/17 03:20 99.4 128 16 120/65 (83) 98 01/17/17 02:30 100.2 01/17/17 01:50 102.0 01/17/17 00:33 102.3 01/16/17 23:16 101.6 114 18 125/68 (87) 99 01/16/17 20:10 99.8 111 20 122/72 (89) 100 121/68 (85) 122/71 (88) 01/16/17 16:37 86 136/74 (94) 125/69 (87) 01/16/17 16:29 98.3 81 22 134/76 (95) 100 01/16/17 14:13 97.8 78 16 108/67 (81) 99 01/16/17 13:02 76 16 104/56 (72) 73 16 109/56 (73) 89 17 109/65 (80) 01/16/17 11:35 17 99 Room Air 01/16/17 11:35 77 18 98 Room Air 01/16/17 11:10 98.5 94 17 111/59 (76) 100 Room Air Narrative GENERAL: Well-nourished, well-developed patient. SKIN: Warm and dry. HEAD: Normocephalic and atraumatic. EYES: No scleral icterus. No injection or drainage. ENT: No nasal drainage noted. Mucous membranes pink. Airway patent. NECK: Supple, trachea midline. No JVD. CARDIOVASCULAR: Regular rate and rhythm without murmurs, gallops, or rubs. RESPIRATORY: Breath sounds equal bilaterally. No accessory muscle use. BREASTS: Bilateral exam showed no masses , no retractions, no nipple discharge. ABDOMEN/GI: Abdomen soft, non-tender, bowel sounds present, no rebound, no guarding incisions healinf no erythema Gravid to [-] weeks size Fundal Height: [-] GENITOURINARY: External Genitalia: intact and normal in appearance BUS glands: [-] Cervix: [-] Dilatation: [-] Effacement: [-] Station: [-] Presentation: [-] Membranes: [intact or ruptured] Uterine Contractions: [-] FHT's: Category: [-] Baseline: [-] Reactive: [-] Variability: [-] Decels: [-] EXTREMITIES: No cyanosis or edema. BACK: Nontender without obvious deformity. No CVA tenderness. NEUROLOGICAL: Awake and alert. Motor and sensory grossly within normal limits. Five out of 5 muscle strength in all muscle groups. Normal speech. no bladder tenderness and no sign of infection Caprini VTE Risk Assessment Caprini VTE Risk Assessment: No/Low Risk (score <= 1) Caprini Risk Assessment Model Point Value = 1 Point Value = 2 Point Value = 3 Point Value = 5 Age 41-60 Minor surgery BMI > 25 kg/m2 Swollen legs Varicose veins or History of unexplained or recurrent spontaneous Oral contraceptives or hormone replacement Sepsis (< 1 month) Serious lung disease, including pneumonia (< 1 month) Abnormal pulmonary function Acute myocardial infarction Congestive heart failure (< 1 month) History of inflammatory bowel disease Medical patient at bed rest Age 61-74 Arthroscopic surgery Major open surgery (> 45 min) Laparoscopic surgery (> 45 min) Malignancy Confined to bed (> 72 hours) Immobilizing plaster cast Central venous access Age >= 75 History of VTE Family history of VTE Factor V Leiden Prothrombin [id number] Lupus anticoagulant Anticardiolipin antibodies Elevated serum homocysteine Heparin-induced thrombocytopenia Other congenital or acquired thrombophilia Stroke (< 1 month) Elective arthroplasty Hip, pelvis, or leg fracture Acute spinal cord injury (< 1 month) Prophylaxis Regimen Total Risk Factor Score Risk Level Prophylaxis Regimen 0-1 Low Early ambulation 2 Moderate Order ONE of the following: *Sequential Compression Device (SCD) *Heparin 5000 units SQ BID 3-4 Higher Order ONE of the following medications: *Heparin 5000 units SQ TID *Enoxaparin/Lovenox 40 mg SQ daily (WT < 150 kg, CrCl > 30 mL/min) *Enoxaparin/Lovenox 30 mg SQ daily (WT < 150 kg, CrCl > 10-29 mL/min) *Enoxaparin/Lovenox 30 mg SQ BID (WT < 150 kg, CrCl > 30 mL/min) AND/OR *Sequential Compression Device (SCD) 5 or more Highest Order ONE of the following medications: *Heparin 5000 units SQ TID (Preferred with Epidurals) *Enoxaparin/Lovenox 40 mg SQ daily (WT < 150 kg, CrCl > 30 mL/min) *Enoxaparin/Lovenox 30 mg SQ daily (WT < 150 kg, CrCl > 10-29 mL/min) *Enoxaparin/Lovenox 30 mg SQ BID (WT < 150 kg, CrCl > 30 mL/min) AND *Sequential Compression Device (SCD) Data Data Vital Signs Reviewed: Yes Orders Orders Electrocardiogram (01/16/17 ) Complete Blood Count With Diff (01/16/17 11:28) Comprehensive Metabolic Panel (01/16/17 11:28) Magnesium (Mg) (01/16/17 11:28) Urinalysis - C+S If Indicated (01/16/17 11:28) Blood Glucose (01/16/17 11:28) Ecg Monitoring (01/16/17 11:28) Iv Access Insert/Monitor (01/16/17 11:28) Oximetry (01/16/17 11:28) Ondansetron Inj (Zofran Inj) (01/16/17 11:30) Sodium Chloride 0.9% Flush (Ns Flush) (01/16/17 11:30) Sodium Chlor 0.9% 1000 Ml Inj (Ns 1000 M (01/16/17 11:28) Orthostatic Vital Signs (01/16/17 12:01) Admit Order (Ed Use Only) (01/16/17 12:51) Place In Observation (01/16/17 ) Code Status (01/16/17 13:37) Vital Signs (Adult) Q4H (01/16/17 13:37) Activity Oob Ad Anuradha (01/16/17 13:37) Diet Regular Basic (01/16/17 Lunch) Complete Blood Count With Diff (01/17/17 06:00) Ondansetron Inj (Zofran Inj) (01/16/17 13:45) Vte Prophylaxis Not Indicated (01/16/17 13:37) Oxycodone-Acetamin 5-325 Mg (Percocet (01/16/17 13:45) Oxycodone-Acetamin 5-325 Mg (Percocet (01/16/17 13:45) Lactated Ringer's 1000 Ml Inj (Lr 1000 M (01/16/17 13:45) Ibuprofen (Motrin) (01/16/17 14:00) Acetaminophen (Tylenol) (01/16/17 14:00) Levofloxacin 500 Mg Premix Inj (Levaquin (01/17/17 10:30) Urinalysis - C+S If Indicated (01/17/17 10:28) Specimen To Be Collected PRN (01/17/17 10:28) Labs Laboratory Tests Test 01/16/17 11:37 01/17/17 05:20 White Blood Count 12.0 14.0 Red Blood Count 3.80 3.25 Hemoglobin 9.8 8.2 Hematocrit 30.0 25.7 Mean Corpuscular Volume 79.0 79.0 Mean Corpuscular Hemoglobin 25.9 25.1 Mean Corpuscular Hemoglobin Concent 32.7 31.8 Red Cell Distribution Width 15.6 15.7 Platelet Count 378 330 Mean Platelet Volume 7.8 7.9 Neutrophils (%) (Auto) 82.2 80.4 Lymphocytes (%) (Auto) 11.1 12.6 Monocytes (%) (Auto) 6.2 6.7 Eosinophils (%) (Auto) 0.1 0.1 Basophils (%) (Auto) 0.4 0.2 Neutrophils # (Auto) 9.9 11.3 Lymphocytes # (Auto) 1.3 1.8 Monocytes # (Auto) 0.7 0.9 Eosinophils # (Auto) 0.0 0.0 Basophils # (Auto) 0.0 0.0 CBC Comment DIFF FINAL DIFF FINAL Differential Comment Blood Urea Nitrogen 12 Creatinine 0.90 Random Glucose 113 Total Protein 7.6 Albumin 3.3 Calcium Level 8.7 Magnesium Level 2.2 Alkaline Phosphatase 68 Aspartate Amino Transf (AST/SGOT) 17 Alanine Aminotransferase (ALT/SGPT) 20 Total Bilirubin 0.7 Sodium Level 138 Potassium Level 4.3 Chloride Level 105 Carbon Dioxide Level 26.3 Anion Gap 7 Estimat Glomerular Filtration Rate 84 Assessment/Plan Problem List: (1) Syncope ICD Codes: R55 - Syncope and collapse Status: Acute Qualifiers: Qualified Codes: R55 - Syncope and collapse Plan: Patient admitted for observation and hydration for syncopal episode Walter Sauer MD Jan 17, 2017 10:40
--- NOTE | 2017-01-17 10:47 | HHI.PR ---
Subjective Remarks Patient feels better and is ambulating to bathroom. she had no syncope for 3 days post op and then it developed. She has syncope and was admitted 01/16. she spiked a temperature to 102 last night and is now feeling better. Has no local complaints. Objective Vital Signs Date Time Temp Pulse Resp B/P (MAP) Pulse Ox O2 Delivery O2 Flow Rate FiO2 01/17/17 08:03 98.2 95 18 126/79 (95) 99 128/74 (92) 130/74 (92) 01/17/17 05:23 97 01/17/17 04:05 112 01/17/17 03:20 99.4 128 16 120/65 (83) 98 01/17/17 02:30 100.2 01/17/17 01:50 102.0 01/17/17 00:33 102.3 01/16/17 23:16 101.6 114 18 125/68 (87) 99 01/16/17 20:10 99.8 111 20 122/72 (89) 100 121/68 (85) 122/71 (88) 01/16/17 16:37 86 136/74 (94) 125/69 (87) 01/16/17 16:29 98.3 81 22 134/76 (95) 100 01/16/17 14:13 97.8 78 16 108/67 (81) 99 01/16/17 13:02 76 16 104/56 (72) 73 16 109/56 (73) 89 17 109/65 (80) 01/16/17 11:35 17 99 Room Air 01/16/17 11:35 77 18 98 Room Air 01/16/17 11:10 98.5 94 17 111/59 (76) 100 Room Air I/O 01/16/17 01/16/17 01/16/17 01/17/17 01/17/17 01/17/17 07:00 15:00 23:00 07:00 15:00 23:00 Intake Total 1000 ml 1250 ml Output Total 200 ml Balance 1000 ml -200 ml 1250 ml Intake Oral 250 ml IV Total 1000 ml 1000 ml Output Urine Total 200 ml # Voids 5 Result Diagram: 01/17/17 0520 01/16/17 1137 Other Results GENERAL: no sign of infection or other local complaints SKIN: Warm and dry. HEAD: Normocephalic. EYES: No scleral icterus. No injection or drainage. NECK: Supple, trachea midline. No JVD or lymphadenopathy. CARDIOVASCULAR: Regular rate and rhythm without murmurs, gallops, or rubs. RESPIRATORY: Breath sounds equal bilaterally. No accessory muscle use. GASTROINTESTINAL: Abdomen soft, non-tender, nondistended. incisions clean and dry MUSCULOSKELETAL: No cyanosis, or edema. BACK: . No CVA tenderness. Assessment and Plan Problem List: (1) Syncope ICD Codes: R55 - Syncope and collapse Status: Acute (2) Fever ICD Codes: R50.9 - Fever, unspecified Plan: start levaquin 500 mg post op fever probable cause of syncope low grade infection but unknown cause Problem Qualifiers (1) Syncope: Qualified Codes: R55 - Syncope and collapse Walter Sauer MD Jan 17, 2017 10:47
[2017-01-17 11:50] LABS: BLOOD, URINE TRACE (NEG); GLUCOSE,URINE NEG (NEG); KETONE, URINE NEG (NEG); NITRITE,URINE NEG (NEG); PH, URINE 6.5 (5.0-8.5); URINE COLOR YELLOW (YELLW/STRAW)
[2017-01-17] MEDS: LEVOFLOXACIN 500 MG PREMIX INJ 100 ML IV SCH (11:51)
[2017-01-17 12:00] LABS: BACTERIA, URINE OCC /hpf; COMMENT (UR) CULT NOT INDICATED; CULTURE IF INDICATED CULT NOT INDICATED; MUCUS URINE MANY /lpf (OCC); RBC, URINE 0-3 /hpf (0-3)
[2017-01-17] MEDS: ACETAMINOPHEN 325 MG TAB PO PRN (13:50)
--- NOTE | 2017-01-17 16:38 | HHI.PR ---
Subjective Remarks Patient feels better now that fever to 103 is down. It seems to be acting like a cuff abscess. UA negative and lungs clear. She had Blood Cx today with temp but after levaquin given. She is moving bowels and urinating well. hungry and still no pain pointing to source Objective Vital Signs Date Time Temp Pulse Resp B/P (MAP) Pulse Ox O2 Delivery O2 Flow Rate FiO2 01/17/17 15:34 102.3 124 22 117/61 (79) 97 01/17/17 14:50 20 01/17/17 13:50 103.1 01/17/17 11:42 98.8 123 28 144/77 (99) 100 01/17/17 08:03 98.2 95 18 126/79 (95) 99 128/74 (92) 130/74 (92) 01/17/17 05:23 97 01/17/17 04:05 112 01/17/17 03:20 99.4 128 16 120/65 (83) 98 01/17/17 02:30 100.2 01/17/17 01:50 102.0 01/17/17 00:33 102.3 01/16/17 23:16 101.6 114 18 125/68 (87) 99 01/16/17 20:10 99.8 111 20 122/72 (89) 100 121/68 (85) 122/71 (88) 01/16/17 16:37 86 136/74 (94) 125/69 (87) I/O 01/16/17 01/16/17 01/16/17 01/17/17 01/17/17 01/17/17 07:00 15:00 23:00 07:00 15:00 23:00 Intake Total 1000 ml 1250 ml Output Total 200 ml Balance 1000 ml -200 ml 1250 ml Intake Oral 250 ml IV Total 1000 ml 1000 ml Output Urine Total 200 ml # Voids 5 Result Diagram: 01/17/17 0520 01/16/17 1137 Objective Remarks Lungs clear no Cva tenderness no increased pain at vaginal cuff and no mass palpated no sign of DVT Assessment and Plan Problem List: (1) Syncope ICD Codes: R55 - Syncope and collapse Status: Acute (2) Fever ICD Codes: R50.9 - Fever, unspecified Plan: start levaquin 500 mg post op fever probable cause of syncope low grade infection but unknown cause. Add flagyl 500 mg TID and consider abscess in AM if fever does not improve Problem Qualifiers (1) Syncope: Qualified Codes: R55 - Syncope and collapse Walter Sauer MD Jan 17, 2017 16:38
[2017-01-17] MEDS: metroNIDAZOLE 500 MG TAB PO SCH ×2 (17:17→22:34)
[2017-01-17] MEDS: HEPARIN SODIUM - SQ 10,000 UNITS/ML VIAL SQ SCH (18:15)
[2017-01-18] VITALS (7 sets, daily range): BP systolic 104–147; BP diastolic 61–77; PULSE 80–124; RESP 16–18; TEMP 98–102.3; O2SAT 97–100
[2017-01-18] MEDS: ACETAMINOPHEN 325 MG TAB PO PRN ×2 (00:43→15:53)
[2017-01-18] MEDS: HEPARIN SODIUM - SQ 10,000 UNITS/ML VIAL SQ SCH ×2 (06:12→17:52)
[2017-01-18] MEDS: metroNIDAZOLE 500 MG TAB PO SCH ×3 (06:12→21:20)
[2017-01-18 07:39] LABS: AUTOMATED NEUTROPHIL # 15.5 TH/MM3 (1.8-7.7); BASOPHIL % 0.2 % (0.0-2.0); EOSINOPHIL % 0.2 % (0.0-4.0); HEMATOCRIT 27.8 % (35.0-46.0); HEMO FLAGS DIFF FINAL; LYMPH % 8.4 % (9.0-44.0); LYMPHOCYTE # 1.5 TH/MM3 (1.0-4.8); MEAN CELL VOLUME 78.7 FL (80.0-100.0); MEAN CORPUSCULAR HEMOGLOBIN 25.5 PG (27.0-34.0); MEAN CORPUSCULAR HGB CONC 32.5 % (32.0-36.0); MONO % 4.9 % (0.0-8.0); NEUT % 86.3 % (16.0-70.0); PLATELET COUNT 365 TH/MM3 (150-450); RED BLOOD COUNT 3.54 MIL/MM3 (4.00-5.30); RED CELL DISTRIBUTION WIDTH 15.7 % (11.6-17.2)
[2017-01-18] MEDS ORDERED: DIATRIZOATE MEGLUM/DIATRIZOATE SOD 9 ML CUP PO ONE (10:30)
[2017-01-18] MEDS: LACTATED RINGER'S 1000 ML INJ 1,000 ML IV SCH ×2 (10:33→15:45)
[2017-01-18] MEDS: LEVOFLOXACIN 500 MG PREMIX INJ 100 ML IV SCH (11:54)
--- NOTE | 2017-01-18 13:04 | RADRPT ---
EXAM DATE/TIME: 01/18/2017 12:17 [facility] COMPARISON: No previous studies available for comparison. INDICATIONS : Fever ORAL CONTRAST: Prescribed oral contrast ingested. RADIATION DOSE: 18.86 CTDIvol (mGy) MEDICAL HISTORY : Asthma,anemia SURGICAL HISTORY : Hysterectomy. ENCOUNTER: Initial ACUITY: 1 day PAIN SCALE: 0/10 LOCATION: pelvis TECHNIQUE: Volumetric scanning of the pelvis was performed. Using automated exposure control and adjustment of the mA and/or kV according to patient size, radiation dose was kept as low as reasonably achievable t o obtain optimal diagnostic quality images. DICOM format image data is available electronically for review and comparison. FINDINGS: There are postoperative changes with stranding in the pelvis but no evidence of discrete abscess. The re is a 4 segment long loop of terminal ileum with marked narrowing of the lumen but no findings of s mall bowel obstruction. The bladder appears normal. No wall thickening or intraluminal masses are carolynn ntified. No free fluid is identified. Ovaries are prominent in size bilaterally but no masses are carolynn ntified CONCLUSION: 1. There is no evidence of abscess. 2. Marked thinning of a loop of the terminal ileum without findings of obstruction at this time. Foll owup examination is recommended if clinically indicated. Toney Koch MD on January 18, 2017 at 13:00 Board Certified Radiologist. This report was verified electronically.
[2017-01-19] VITALS: BP 126/75; PULSE 115; RESP 17; TEMP 102.3; O2SAT 96
[2017-01-19] MEDS: ACETAMINOPHEN 325 MG TAB PO PRN (00:10)
[2017-01-19] MEDS: LACTATED RINGER'S 1000 ML INJ 1,000 ML IV SCH ×3 (01:45→21:29)
[2017-01-19 04:00] VITALS: TEMP 98.3
[2017-01-19 04:28] LABS: AUTOMATED NEUTROPHIL # 7.3 TH/MM3 (1.8-7.7); BASOPHIL % 0.3 % (0.0-2.0); EOSINOPHIL % 0.2 % (0.0-4.0); HEMATOCRIT 25.7 % (35.0-46.0); HEMO FLAGS DIFF FINAL; LYMPH % 16.4 % (9.0-44.0); LYMPHOCYTE # 1.6 TH/MM3 (1.0-4.8); MEAN CELL VOLUME 77.8 FL (80.0-100.0); MEAN CORPUSCULAR HGB CONC 33.4 % (32.0-36.0); NEUT % 75.1 % (16.0-70.0); PLATELET COUNT 325 TH/MM3 (150-450); RED BLOOD COUNT 3.31 MIL/MM3 (4.00-5.30); RED CELL DISTRIBUTION WIDTH 15.6 % (11.6-17.2); WHITE BLOOD COUNT 9.7 TH/MM3 (4.0-11.0)
[2017-01-19] MEDS: metroNIDAZOLE 500 MG TAB PO SCH (04:56)
[2017-01-19] MEDS: HEPARIN SODIUM - SQ 10,000 UNITS/ML VIAL SQ SCH ×2 (04:57→17:03)
[2017-01-19 08:00] VITALS: BP 120/73; PULSE 99; RESP 16; TEMP 98.2; O2SAT 98
[2017-01-19 12:00] VITALS: BP 122/75; PULSE 95; RESP 17; TEMP 98; O2SAT 99
--- NOTE | 2017-01-19 12:31 | PD.ID.CON ---
History of Present Illness Service ID Consult Requested By Dr Sauer Reason for Consult bacteremia, anaerobic GNB Primary Care Physician Herson Ball III, MD Diagnoses: History of Present Illness 41 yo F with sp LAVH bilateral salpingectomy on 01/[address] Sauer returened on Jan 16 with fever of 103 and a syncopal episodes 2 at home She was placed on Levaquine Blood clx is growing anaerobic GNB, beta lac + Pt denies vaginal discharge or bleeding + mild abdominal discomfort and liquid stool 1 BM/day CT was done and showed no abscess Pt cont to spike up to 102 till mid nite today Review of Systems Constitutional: COMPLAINS OF: Fever Gastrointestinal: COMPLAINS OF: Diarrhea, Nausea Except as stated in HPI: all other systems reviewed are Neg Past Family Social History Allergies: Coded Allergies: erythromycin base (Verified Allergy, Intermediate, Rash, 01/16/17) penicillin G (Verified Allergy, Intermediate, Rash, 01/16/17) orange (Verified Adverse Reaction, Severe, MILD FACIAL RASH, 01/16/17) tomato (Verified Adverse Reaction, Intermediate, MILD FACIAL RASH, ) Past Medical History heavy menstrual bleed Past Surgical History ablation, surgery LAV 1 week ago Active Ordered Medications Medications where reviewed in EMR Antibiotics Include: flagyl Family History reviewed Non-Contributory. Social History No Tobacco. No ETOH. No Illicit Drugs. Physical Exam Vital Signs Vital Signs Date Time Temp Pulse Resp B/P (MAP) Pulse Ox O2 Delivery O2 Flow Rate FiO2 01/19/17 08:00 98.2 99 16 120/73 (89) 98 01/19/17 04:00 98.3 01/19/17 00:00 102.3 115 17 126/75 (92) 96 01/18/17 20:00 100.1 101 17 147/61 (89) 99 01/18/17 16:00 102.3 124 18 133/77 (95) 99 Physical Exam CONSTITUTIONAL/GENERAL: This is an obese young patient, in no apparent distress. TUBES/LINES/DRAINS: SKIN: No jaundice, rashes, or lesions. Skin temperature appropriate. Not diaphoretic. HEAD: Atraumatic. Normocephalic. EYES: Pupils equal and round and reactive. Extraocular motions intact. No scleral icterus. No injection or drainage. Fundi not examined. ENT: Hearing grossly normal. Nose without bleeding or purulent drainage. Throat without visible erythema, exudates, masses, or lesions. NECK: Trachea midline. Supple, nontender. No palpable thyroid enlargement or nodularity. CARDIOVASCULAR: Regular rate and rhythm without murmurs, gallops, or rubs. No JVD. Peripheral pulses symmetric. RESPIRATORY/CHEST: Symmetric, unlabored respirations. Clear to auscultation. Breath sounds equal bilaterally. No wheezes, rales, or rhonchi. GASTROINTESTINAL: Abdomen soft, non-tender, nondistended. Incisions look dry and clean No hepato-splenomegaly, or palpable masses. No guarding. Bowel sounds present. GENITOURINARY: Without palpable bladder distension. MUSCULOSKELETAL: Extremities without clubbing, cyanosis, or edema. No joint tenderness or effusion noted. No calf tenderness. No mottling or clubbing. LYMPHATICS: No palpable cervical or supraclavicular adenopathy. NEUROLOGICAL: Awake and alert. Motor and sensory grossly within normal limits. Follows commands. Cognitively sharp. Moves all extremities. PSYCHIATRIC: No obvious anxiety/depression. no apparent hallucinations or other psychotic thought process. Laboratory Laboratory Tests Test 01/19/17 03:55 White Blood Count 9.7 Red Blood Count 3.31 Hemoglobin 8.6 Hematocrit 25.7 Mean Corpuscular Volume 77.8 Mean Corpuscular Hemoglobin 26.0 Mean Corpuscular Hemoglobin Concent 33.4 Red Cell Distribution Width 15.6 Platelet Count 325 Mean Platelet Volume 7.8 Neutrophils (%) (Auto) 75.1 Lymphocytes (%) (Auto) 16.4 Monocytes (%) (Auto) 8.0 Eosinophils (%) (Auto) 0.2 Basophils (%) (Auto) 0.3 Neutrophils # (Auto) 7.3 Lymphocytes # (Auto) 1.6 Monocytes # (Auto) 0.8 Eosinophils # (Auto) 0.0 Basophils # (Auto) 0.0 CBC Comment DIFF FINAL Differential Comment Date/Time Source Procedure Growth Status 01/17/17 16:52 Blood Arterial Line Aerobic Blood Culture - Preliminary NO GROWTH IN 2 DAYS Resulted 01/17/17 16:52 Anaerobic Blood Culture - Preliminary Anaerobic Gram Neg Jorje Resulted Result Diagram: 01/19/17 0355 01/16/17 1137 Imaging Last Impressions Pelvis CT 01/18/17 0000 Signed Impressions: Service Date/Time: Nicholas, January 18, 2017 12:17 - CONCLUSION: 1. There is no evidence of abscess. 2. Marked thinning of a loop of the terminal ileum without findings of obstruction at this time. Followup examination is recommended if clinically indicated. Toney Koch MD Assessment and Plan Assessment and Plan 41 yo sp laparoscopic assisted vaginal hysterctomy 1 week ag Sepsis, anaerobic GNB No e/o bowel perforation or other GI pathology ? vag cuff infection PCN allergy but reports no issues with amoxicillin or Keflex Diarrhea cont flagyl add CFTX r/o c.diff if cont to have liquid BMs will repeat CT A/P with contrast if cont to spike or o/w sypmtomatic planto d/c home on oral abx if doing ok, staying afebrile x 24 hrs Discussed Condition With Lexie Mccarthy MD Jan 19, 2017 12:31
--- NOTE | 2017-01-19 13:41 | HHI.PR ---
Subjective Remarks Patient continues to have fever. she has bacteria in blood Cx and is doing well eating ambulating and voiding. she has seen ID and they are changing antibiotics Objective Vital Signs Date Time Temp Pulse Resp B/P (MAP) Pulse Ox O2 Delivery O2 Flow Rate FiO2 01/19/17 12:00 98.0 95 17 122/75 (91) 99 01/19/17 08:00 98.2 99 16 120/73 (89) 98 01/19/17 04:00 98.3 01/19/17 00:00 102.3 115 17 126/75 (92) 96 01/18/17 20:00 100.1 101 17 147/61 (89) 99 01/18/17 16:00 102.3 124 18 133/77 (95) 99 I/O 01/18/17 01/18/17 01/18/17 01/19/17 01/19/17 01/19/17 07:00 15:00 23:00 07:00 15:00 23:00 Intake Total 480 ml 480 ml Balance 480 ml 480 ml Intake Oral 480 ml 480 ml # Voids 8 2 # Bowel Movements 0 Result Diagram: 01/19/17 0355 01/16/17 1137 Objective Remarks no sign of DVT Assessment and Plan Problem List: (1) Syncope ICD Codes: R55 - Syncope and collapse Status: Acute (2) Fever ICD Codes: R50.9 - Fever, unspecified Plan: Dc flagyl PO and levaquin and start rocephin and flagyl IV per bertin. She has gram neg rods in blood Problem Qualifiers (1) Syncope: Qualified Codes: R55 - Syncope and collapse Walter Sauer MD Jan 19, 2017 13:41
[2017-01-19] MEDS: cefTRIAXone INJ 2,000 MG in SODIUM CHLORIDE 0.9% INJ 100 ML IV SCH (14:32)
[2017-01-19] MEDS: metroNIDAZOLE 500 MG INJ 100 ML IV SCH ×2 (14:32→21:30)
[2017-01-19 16:00] VITALS: BP 129/78; PULSE 92; RESP 17; TEMP 99.1; O2SAT 98
[2017-01-19 20:00] VITALS: BP 134/82; PULSE 110; RESP 17; TEMP 99.3; O2SAT 100
[2017-01-20] VITALS: BP 129/79; PULSE 108; RESP 17; TEMP 100.1; O2SAT 99
[2017-01-20] MEDS: ACETAMINOPHEN 325 MG TAB PO PRN ×2 (01:14→20:47)
[2017-01-20 04:00] VITALS: TEMP 97.2
[2017-01-20] MEDS: metroNIDAZOLE 500 MG INJ 100 ML IV SCH ×3 (05:04→20:47)
[2017-01-20] MEDS: LACTATED RINGER'S 1000 ML INJ 1,000 ML IV SCH ×2 (05:04→17:21)
[2017-01-20] MEDS: HEPARIN SODIUM - SQ 10,000 UNITS/ML VIAL SQ SCH ×2 (05:04→17:06)
[2017-01-20 08:00] VITALS: BP 113/64; PULSE 90; RESP 16; TEMP 97.1; O2SAT 98
[2017-01-20 12:00] VITALS: BP 115/69; PULSE 88; RESP 17; TEMP 97.9; O2SAT 99
[2017-01-20] MEDS: cefTRIAXone INJ 2,000 MG in SODIUM CHLORIDE 0.9% INJ 100 ML IV SCH (12:02)
[2017-01-20 16:00] VITALS: BP 118/75; PULSE 88; RESP 17; TEMP 98; O2SAT 99
--- NOTE | 2017-01-20 18:29 | HHI.PR ---
Subjective Remarks Patient seems to be improving. She has not had fever in 24 hours and is doing well on IV antibiotics. She has developed some loose stools with all the antibiotics. She feels better Objective Vital Signs Date Time Temp Pulse Resp B/P (MAP) Pulse Ox O2 Delivery O2 Flow Rate FiO2 01/20/17 16:00 98.0 88 17 118/75 (89) 99 01/20/17 12:00 97.9 88 17 115/69 (84) 99 01/20/17 08:00 97.1 90 16 113/64 (80) 98 01/20/17 04:00 97.2 01/20/17 00:00 100.1 108 17 129/79 (96) 99 01/19/17 20:00 99.3 110 17 134/82 (99) 100 I/O 01/19/17 01/19/17 01/19/17 01/20/17 01/20/17 01/20/17 07:00 15:00 23:00 07:00 15:00 23:00 Intake Total 480 ml 1340 ml 1340 ml 200 ml 1007 ml Balance 480 ml 1340 ml 1340 ml 200 ml 1007 ml Intake Oral 480 ml 240 ml 240 ml IV Total 1100 ml 1100 ml 200 ml 1007 ml # Voids 2 4 2 # Bowel Movements 0 Result Diagram: 01/19/17 0355 01/16/17 1137 Objective Remarks general appearance is markedly improved over past 24 hours Assessment and Plan Problem List: (1) Syncope ICD Codes: R55 - Syncope and collapse Status: Acute (2) Fever ICD Codes: R50.9 - Fever, unspecified Plan: On IV flagly and rocepin but bacteroides is beta lactam positive and no sensitivities. If they come back tomorrow and patient remains afebrile we can dc home on po meds for infection Problem Qualifiers (1) Syncope: Qualified Codes: R55 - Syncope and collapse Walter Sauer MD Jan 20, 2017 18:29
[2017-01-20 20:33] VITALS: BP 131/79; PULSE 101; RESP 20; TEMP 100.1; O2SAT 98
[2017-01-20] MEDS: LOPERAMIDE HCL 2 MG CAP PO PRN (20:47)
[2017-01-21 00:27] VITALS: BP 130/79; PULSE 97; RESP 20; TEMP 98.1; O2SAT 98
[2017-01-21] MEDS: LACTATED RINGER'S 1000 ML INJ 1,000 ML IV SCH (04:16)
[2017-01-21] MEDS: metroNIDAZOLE 500 MG INJ 100 ML IV SCH (04:17)
[2017-01-21] MEDS: HEPARIN SODIUM - SQ 10,000 UNITS/ML VIAL SQ SCH (04:17)
[2017-01-21] MEDS: LOPERAMIDE HCL 2 MG CAP PO PRN (04:27)
[2017-01-21 08:00] VITALS: BP 132/85; PULSE 82; RESP 16; TEMP 98.2; O2SAT 98
--- NOTE | 2017-01-21 08:23 | HHI.PR ---
Subjective Remarks pt feels good. wants to go home. states stools are improved with immodium. no abdominal pain or SOB. no fever. she felt a little warm when temp was 100.1 last night, but not like when temp was 101 or 102. Objective Vital Signs Date Time Temp Pulse Resp B/P (MAP) Pulse Ox O2 Delivery O2 Flow Rate FiO2 01/21/17 00:27 98.1 97 20 130/79 (96) 98 01/20/17 20:33 100.1 101 20 131/79 (96) 98 01/20/17 16:00 98.0 88 17 118/75 (89) 99 01/20/17 12:00 97.9 88 17 115/69 (84) 99 I/O 01/20/17 01/20/17 01/20/17 01/21/17 01/21/17 01/21/17 07:00 15:00 23:00 07:00 15:00 23:00 Intake Total 1340 ml 200 ml 1347 ml 1580 ml Balance 1340 ml 200 ml 1347 ml 1580 ml Intake Oral 240 ml 240 ml 480 ml IV Total 1100 ml 200 ml 1107 ml 1100 ml # Voids 2 8 6 # Bowel Movements 0 2 Result Diagram: 01/19/17 0355 Objective Remarks GENERAL: Well-nourished, well-developed patient. CARDIOVASCULAR: Regular rate and rhythm without murmurs, gallops, or rubs. RESPIRATORY: Breath sounds equal bilaterally. No accessory muscle use. ABDOMEN/GI: Abdomen soft, non-tender, bowel sounds present. Incisions: Clean, dry and intact. EXTREMITIES: No cyanosis or edema, non-tender, without signs of DVT. Assessment and Plan Problem List: (1) Bacteremia ICD Codes: R78.81 - Bacteremia Plan: appreciate ID input micro states susceptibilities not usually performed if beta lac pos, as this is a send out. afebrile X 48 hrs will d/c home on keflex and flagyl (2) Fever ICD Codes: R50.9 - Fever, unspecified Status: Resolved Plan: resolved s/p antibiotics Problem Qualifiers (1) Fever: Qualified Codes: R50.82 - Postprocedural fever Zayda Duckworth MD Jan 21, 2017 08:23
[2017-01-21] MEDS ORDERED: METR1TAB76 PO ×2 (08:31→11:01)
[2017-01-21] MEDS ORDERED: CEPH-460 PO (08:31)
--- NOTE | 2017-01-21 08:33 | HHI.DS ---
Discharge Summary Admission Date Jan 18, 2017 at 07:47 Discharge Date: Jan 21, 2017 Admitting Diagnosis Syncope, Fever s/p [facility] (1) Syncope ICD Codes: R55 - Syncope and collapse Status: Acute (2) Fever ICD Codes: R50.9 - Fever, unspecified Status: Resolved (3) Bacteremia ICD Codes: R78.81 - Bacteremia CBC/BMP: 01/19/17 0355 Significant Findings Laboratory Tests Test 01/19/17 03:55 Red Blood Count 3.31 MIL/MM3 (4.00-5.30) Hemoglobin 8.6 GM/DL (11.6-15.3) Hematocrit 25.7 % (35.0-46.0) Mean Corpuscular Volume 77.8 FL (80.0-100.0) Mean Corpuscular Hemoglobin 26.0 PG (27.0-34.0) Neutrophils (%) (Auto) 75.1 % (16.0-70.0) PE at Discharge GENERAL: Well-nourished, well-developed patient. CARDIOVASCULAR: Regular rate and rhythm without murmurs, gallops, or rubs. RESPIRATORY: Breath sounds equal bilaterally. No accessory muscle use. ABDOMEN/GI: Abdomen soft, non-tender, bowel sounds present. Incisions: Clean, dry and intact. EXTREMITIES: No cyanosis or edema, non-tender, without signs of DVT. Hospital Course pt was admitted with syncope and fevers up to 102-103. on 01/19 blood cultures from 01/17 returned with bacteroides fragilis. antibiotics were changed to rocephin and flagyl after ID was consulted. pt remained afebrile for 48 hours and was stable for d/c home on 01/21. Pt Condition on Discharge: Stable Discharge Disposition: Discharge Home Discharge Instructions DIET: Follow Instructions for: As Tolerated, No Restrictions Activities you can perform: Shower Only-No Bath Activities to avoid: Weight Bearing, Prolonged Standing, Strenuous Activity, Sexual Activity New Medications: Cephalexin (Keflex) 500 Mg Capsule 500 MG PO Q6H for Infection for 7 Days, #28 CAP 0 Refills Metronidazole (Metronidazole) 500 Mg Tab 500 MG PO TID for Infection for 7 Days, #21 TAB 0 Refills Continued Medications: Albuterol 8.5 GM Inh (Proair Hfa 8.5 GM Inh) 90 Mcg/Act Aer 2 PUFF INH Q6H PRN for SHORTNESS OF BREATH, #1 INHALER 0 Refills 108 mcg/actuation Zayda Duckworth MD Jan 21, 2017 08:33
--- NOTE | 2017-01-21 10:58 | HHI.IDPN ---
Subjective Subjective Remarks having chills and fevers every night around 8 pm, but they r now low grade co mild bloody vaginal d/c also c/o diarrhea 4-5 BMs yday she denies any pain and o/w feels great and wants to leave home Antibiotics cFTX flgyl Allergies: Coded Allergies: erythromycin base (Verified Allergy, Intermediate, Rash, 01/16/17) penicillin G (Verified Allergy, Intermediate, Rash, 01/16/17) orange (Verified Adverse Reaction, Severe, MILD FACIAL RASH, 01/16/17) tomato (Verified Adverse Reaction, Intermediate, MILD FACIAL RASH, ) Objective . Vital Signs Date Time Temp Pulse Resp B/P (MAP) Pulse Ox O2 Delivery O2 Flow Rate FiO2 01/21/17 08:00 98.2 82 16 132/85 (101) 98 01/21/17 00:27 98.1 97 20 130/79 (96) 98 01/20/17 20:33 100.1 101 20 131/79 (96) 98 01/20/17 16:00 98.0 88 17 118/75 (89) 99 01/20/17 12:00 97.9 88 17 115/69 (84) 99 Imaging Last Impressions Pelvis CT 01/18/17 0000 Signed Impressions: Service Date/Time: Wednesday, January 18, 2017 12:17 - CONCLUSION: 1. There is no evidence of abscess. 2. Marked thinning of a loop of the terminal ileum without findings of obstruction at this time. Followup examination is recommended if clinically indicated. Toney Koch MD Physical Exam CONSTITUTIONAL/GENERAL: This is an obese young patient, in no apparent distress.Looks well TUBES/LINES/DRAINS: SKIN: No jaundice, rashes, or lesions. EYES: Pupils equal and round and reactive. Extraocular motions intact. No scleral icterus. No injection or drainage. Fundi not examined. CARDIOVASCULAR: Regular rate and rhythm without murmurs, gallops, or rubs. No JVD. Peripheral pulses symmetric. RESPIRATORY/CHEST: Symmetric, unlabored respirations. Clear to auscultation. Breath sounds equal bilaterally. No wheezes, rales, or rhonchi. GASTROINTESTINAL: Abdomen soft, non-tender, nondistended. Incisions look dry and clean No hepato-splenomegaly, or palpable masses. No guarding. Bowel sounds present. GENITOURINARY: Without palpable bladder distension. MUSCULOSKELETAL: Extremities without clubbing, cyanosis, or edema. NEUROLOGICAL: Awake and alert. Non focal Assessment & Plan Remarks 41 yo sp laparoscopic assisted vaginal hysterctomy 1 week ag Sepsis, anaerobic GNB No e/o bowel perforation or other GI pathology ? vag cuff infection PCN allergy but reports no issues with amoxicillin or Keflex Diarrhea, abx associated Leukocytosis- resolved cont flagyl PO + Bactrim PO to complete 14 days of tx OK to dc home today r/o c.diff if cont to have liquid BMs Pt was counseled to report immediately heavy vg bleeding, wiorsning of fevers, abdominal pain or severe diarrhea qing Shukla pt Lexie Loera MD Jan 21, 2017 10:58
[2017-01-21] MEDS ORDERED: BACT800T5 PO (11:01)
[2017-01-21 14:22] LABS: AUTOMATED NEUTROPHIL # 6.8 TH/MM3 (1.8-7.7); BASOPHIL % 0.5 % (0.0-2.0); EOSINOPHIL # 0.2 TH/MM3 (0-0.4); EOSINOPHIL % 1.6 % (0.0-4.0); HEMATOCRIT 27.1 % (35.0-46.0); HEMO FLAGS DIFF FINAL; LYMPH % 18.5 % (9.0-44.0); LYMPHOCYTE # 1.8 TH/MM3 (1.0-4.8); MEAN CELL VOLUME 77.4 FL (80.0-100.0); MEAN CORPUSCULAR HEMOGLOBIN 25.9 PG (27.0-34.0); MEAN CORPUSCULAR HGB CONC 33.5 % (32.0-36.0); MONO % 10.5 % (0.0-8.0); NEUT % 68.9 % (16.0-70.0); PLATELET COUNT 444 TH/MM3 (150-450); RED BLOOD COUNT 3.51 MIL/MM3 (4.00-5.30); RED CELL DISTRIBUTION WIDTH 15.3 % (11.6-17.2); WHITE BLOOD COUNT 9.9 TH/MM3 (4.0-11.0)
[2017-01-21 14:35] LABS: C. DIFF EPI 027 PRESUMPTIVE NEGATIVE (NEGATIVE)
== END 2017-01-21 14:21 | disposition home or self-care (01) | DRG 312 ==
LOC: NEPC 11:08 → NEDA 12:53 → NEPGCP 14:28 → OBSVTOIN 01-18 07:47 → N07B 01-18 11:31
PROVIDERS: ADMIT Obstetrics & Gynecology; ATTEND Obstetrics & Gynecology
DX: R55 Syncope and collapse (principal); K52.1 Toxic gastroenteritis and colitis; R78.81 Bacteremia; B96.6 Bacteroides fragilis [B. fragilis] as the cause of diseases classified elsewhere; R50.82 Postprocedural fever; T36.95XA Adverse effect of unspecified systemic antibiotic, initial encounter; Y92.239 Unspecified place in hospital as the place of occurrence of the external cause; E66.9 Obesity, unspecified; Z68.33 Body mass index [BMI] 33.0-33.9, adult
CPT/HCPCS: 72192; 76937; 80053; 81001; 83735; 85025; 87040; 87076; 87185; 87205; 87493; 93005; 96361; 96365; 96372; 96375; G0378; J0696; J1644; J1956; J2405; J7030; J7120; Q9963